=== PATIENT | female | born 1980 | race American Indian/Alaskan Native ===

== ENCOUNTER 2017-01-12 17:56 | Emergency (ER) | payer OTHER ==
[2017-01-12 17:56] VITALS: BMI 34.4
[2017-01-12 18:10] VITALS: RESP 18; TEMP 98; O2SAT 100
[2017-01-12 19:30] VITALS: PULSE 72
--- NOTE | 2017-01-12 19:53 | C.PDOC ---
History Of Present Illness 36 year old female with a Hx of diabetes who presents to the ER with a complaint of a right sided headache since Thursday. Patient reports she has been taking 600mg motrin with minimal relief, she notes she is complaint with her metformin. Denies Hx of migraines, recent head trauma, fever, chills, nausea , or vomiting. Time Seen by Provider: 01/12/17 19:18 Chief Complaint (Nursing): Headache History Per: Patient History/Exam Limitations: no limitations Onset/Duration Of Symptoms: Days Current Symptoms Are (Timing): Still Present Preceeding Symptoms: None Associated Symptoms: denies: Nausea, Vomiting Recent travel outside of the [place]: No Past Medical History Reviewed: Historical Data, Nursing Documentation, Vital Signs Vital Signs: Last Vital Signs Temp 98 F 01/12/17 18:05 Pulse 72 01/12/17 19:26 Resp 18 01/12/17 21:04 BP 122/74 01/12/17 21:04 Pulse Ox 100 01/12/17 21:09 - Medical History PMH: Diabetes Surgical History: No Surg Hx Family History: States: Unknown Family Hx - Social History Hx Alcohol Use: No Hx Substance Use: No - Immunization History Hx Tetanus Toxoid Vaccination: No Hx Influenza Vaccination: Yes (03/2016) Hx Pneumococcal Vaccination: No Review Of Systems Constitutional: Negative for: Fever, Chills Gastrointestinal: Negative for: Nausea, Vomiting Musculoskeletal: Negative for: Neck Pain Neurological: Positive for: Headache. Negative for: Dizziness Physical Exam - Physical Exam Appears: Non-toxic Skin: Normal Color, Warm, Dry Head: Atraumatic, Normacephalic, Tenderness (to right TMJ temporal region, reproducible with palpation), No Swelling Oral Mucosa: Moist Neck: Normal, Normal ROM, No Midline Cervical Tenderness, No Paracervical Tenderness Chest: Symmetrical, No Tenderness Respiratory: Other (Speaking in complete sentences, no respiratory distress) Neurological/Psych: Oriented x3, Normal Speech, Normal Cognition Gait: Steady ED Course And Treatment O2 Sat by Pulse Oximetry: 100 (Room air) Pulse Ox Interpretation: Normal - CT Scan/US CT Head Other Rad Studies (CT/US): Read By Radiologist, Radiology Report Reviewed CT/US Interpretation: EXAM: CT Head Without Intravenous Contrast. CLINICAL HISTORY: 36 years old, female; Condition or disease; Headache; Additional info : R sided headache. TECHNIQUE: Axial computed tomography images of the head/ brain without intravenous contrast. This CT exam. was performed using one or more of the following dose reduction techniques: automated exposure. control, adjustment of the mA and/or kV according to patient size, and/or use of iterative. reconstruction technique. EXAM DATE/TIME: 01/12/2017 7:54 PM. COMPARISON: No relevant prior studies available. FINDINGS: BRAIN: Small areas of CSF density at the base of the brain bilaterally, most likely representing. prominent VR spaces, a normal variant. No significant acute abnormality identified. No acute hemorrhage seen within the brain. No acute. extra-axial fluid collections visualized. No evidence of significant mass effect within the brain.Normal. reich-white matter differentiation. VENTRICLES : No evidence of significant hydrocephalus. BONES/JOINTS: No acute fractures or other acute bony abnormality noted. SOFT TISSUES: No acute abnormality of the visualized soft tissues is seen. SINUSES: Visualized paranasal sinuses appear clear. MASTOID AIR CELLS: Mastoid air cells appear clear. IMPRESSION: - No acute findings seen within the brain. - See above for remaining findings. Progress - Re-Evaluation Re-evaluation Note: 01/12/17 21:09 FEELS BETTER. NEURO INTACT NO ACUTE DEF. ADVISED POSSIBLE TMJ SYNDROME, DC FU PMD - Data Reviewed Data Reviewed: Diagnostic imaging Medical Decision Making Medical Decision Making: Plan: * Head CT * Tylenol * Reglan * Imitrex Disposition Counseled Patient/Family Regarding: Diagnosis, Need For Followup, Rx Given - Disposition Referrals: YOUR,DENTIST [Other] Disposition: HOME/ ROUTINE Disposition Time: 21:09 Condition: IMPROVED Instructions: Temporomandibular Disorder (ED), Acute Headache (ED) Forms: [employer] (Uzbek) - Clinical Impression Clinical Impression: Headache, TMJ (temporomandibular joint syndrome) - Scribe Statement The provider has reviewed the documentation as recorded by the Scribe Zia Garcia All medical record entries made by the Scribe were at my direction and personally dictated by me. I have reviewed the chart and agree that the record accurately reflects my personal performance of the history, physical exam, medical decision making, and the department course for this patient. I have also personally directed, reviewed, and agree with the discharge instructions and disposition.
--- NOTE | 2017-01-12 20:54 | CT ---
EXAM: CT Head Without Intravenous Contrast CLINICAL HISTORY: 36 years old, female; Condition or disease; Headache; Additional info: R sided headache TECHNIQUE: Axial computed tomography images of the head/brain without intravenous contrast. This CT exam was performed using one or more of the following dose reduction techniques: automated exposure control, adjustment of the mA and/or kV according to patient size, and/or use of iterative reconstruction technique. EXAM DATE/TIME: 01/12/2017 7:54 PM COMPARISON: No relevant prior studies available. FINDINGS: BRAIN: Small areas of CSF density at the base of the brain bilaterally, most likely representing prominent VR spaces, a normal variant. No significant acute abnormality identified. No acute hemorrhage seen within the brain. No acute extra-axial fluid collections visualized. No evidence of significant mass effect within the brain.Normal reich-white matter differentiation. VENTRICLES: No evidence of significant hydrocephalus. BONES/JOINTS: No acute fractures or other acute bony abnormality noted. SOFT TISSUES: No acute abnormality of the visualized soft tissues is seen. SINUSES: Visualized paranasal sinuses appear clear. MASTOID AIR CELLS: Mastoid air cells appear clear. IMPRESSION: - No acute findings seen within the brain. - See above for remaining findings.
[2017-01-12 21:04] VITALS: BP 122/74
== END 2017-01-12 21:14 | disposition home or self-care (01) ==
LOC: C.ER 17:56
DX: R51 Headache (principal); M26.621 Arthralgia of right temporomandibular joint
CPT/HCPCS: 70450; 82948; 96372; 99285; J2765; J3030